=== PATIENT | male | born 2000 | race Hispanic/Latino ===

== ENCOUNTER 2021-02-20 20:38 | Emergency (ER) | payer MEDICAID, OTHER ==
[2021-02-20] MEDS ORDERED: ACETAMINOPHEN 500 MG TABLET ONE (21:14)
[2021-02-20] MEDS ORDERED: L.E.T. GEL 3ML SYG TP ONE ×2 (21:14→21:30)
[2021-02-20] MEDS ORDERED: TETANUS/DIPHTHERIA TOXOID [ADULT] 0.5 ML VIAL IM ONE ×2 (21:15→21:30)
[2021-02-20] MEDS ORDERED: ACETAMINOPHEN 500 MG TABLET PO ONE (21:30)
[2021-02-20 21:34] LABS: BASOPHILS % (AUTO) 0.5 % (0.0-5.0); EOSINOPHILS % (AUTO) 0.2 % (0.0-8.0); HEMATOCRIT 49.6 % (42-54); LYMPHOCYTES % (AUTO) 15.4 % (21.0-51.0); MEAN CORPUSCULAR HEMOGLOBIN 28.2 pg (27.0-33.0); MEAN CORPUSCULAR HGB CONC 33.5 g/dL (32.0-36.0); MEAN CORPUSCULAR VOLUME 84.4 fL (80-100); MONOCYTES % (AUTO) 5.9 % (3.0-13.0); PLATELET COUNT (AUTO) 279 K/uL (130-400); RED BLOOD CELL COUNT(AUTO) 5.88 MIL/uL (4.50-6.20); RED CELL DISTRIBUTION WIDTH 11.9 % (11.0-15.5); WHITE BLOOD COUNT (AUTO) 13.3 K/uL (4.8-10.8)
[2021-02-20 21:49] LABS: CREATININE 1.1 mg/dL (0.5-1.5); POTASSIUM 3.5 mmol/L (3.5-5.1)
[2021-02-20 21:54] LABS: ALBUMIN 4.2 g/dL (3.5-5.0); BILIRUBIN,TOTAL 0.3 mg/dL (0.2-1.0); TOTAL PROTEIN, SERUM 7.9 g/dL (6.0-8.3)
[2021-02-20 21:56] VITALS: BP 131/87
[2021-02-20] MEDS ORDERED: ACET-2247 PO (22:01)
== END 2021-02-20 22:33 | disposition home or self-care (01) ==
LOC: EDH 20:38
DX: S01.01XA Laceration without foreign body of scalp, initial encounter (principal); S80.11XA Contusion of right lower leg, initial encounter; V46.0XXA Car driver injured in collision with other nonmotor vehicle in nontraffic accident, initial encounter; Y93.89 Activity, other specified; Y92.89 Other specified places as the place of occurrence of the external cause; Y99.8 Other external cause status
CPT/HCPCS: 12001; 36415; 70450; 72125; 73590; 80053; 85025; 90471; 90714